=== PATIENT | male | born 1965 | race African-American/Black ===

== ENCOUNTER 2022-08-06 20:13 | Inpatient (IN) | payer MEDICAID ==
[~2022-08-06] VITALS: Ht 182.9 cm; Wt 119.3 kg
[~2022-08-06 20:13] MED LIST: ASPI-867 PO; CLOP-31 PO; LIP40 PO; LISI-652 PO; METO50TA95 PO
[2022-08-06] MEDS ORDERED: ONDANSETRON HCL 4MG/2ML INJ IV STA (20:52)
[2022-08-06] MEDS ORDERED: MORPHINE SULFATE 4 MG/ML CPJ (NOT FOR IM USE) IV STA (20:52)
[2022-08-06] MEDS ORDERED: SODIUM CHLORIDE 0.9% 1,000 ML IV ONE (21:00)
[2022-08-06] MEDS ORDERED: CLONIDINE 0.2MG TABLET PO ONE (21:00)
[2022-08-06 21:12] LABS: CHLORIDE 108 mEq/L (98-107)
[2022-08-06 21:25] LABS: BASOPHILS % 1.3 % (0.0-2.0); EOSINOPHILS % 8.4 % (0.0-5.0); HEMATOCRIT. 50.1 % (42.0-52.0); HEMOGLOBIN. 16.6 g/dL (14.0-18.0); LYMPHOCYTES % 33.6 % (20.0-50.0); MEAN CORPUSCULAR VOLUME 81.7 fL (80.0-94.0); MEAN PLATELET VOLUME 8.1 fl (7.4-10.4); MONOCYTES % 10.9 % (2.0-8.0); NEUTROPHILS % 45.8 % (40.0-76.0); PLATELET 214 x1000/uL (130-400); RED BLOOD CELL COUNT 6.13 mill/uL (4.7-6.1); RED CELL DISTRIBUTION WIDTH 16.1 % (11.6-14.6)
[2022-08-07] MEDS: HYDRALAZINE 20MG/ML VIAL IV PRN ×2 (04:04→16:31)
[2022-08-07] MEDS: HYDROCODONE/ACETAMINOPHEN 10/325MG TABLET PO PRN ×3 (04:04→16:29)
[2022-08-07 05:00] VITALS: BP 186/106
[2022-08-07] MEDS ORDERED: ASPI-1406 PO (05:32)
[2022-08-07 06:36] LABS: CHLORIDE 109 mEq/L (98-107)
[2022-08-07 06:40] LABS: BASOPHILS % 0.9 % (0.0-2.0); EOSINOPHILS % 3.5 % (0.0-5.0); HEMATOCRIT. 49.5 % (42.0-52.0); HEMOGLOBIN. 16.4 g/dL (14.0-18.0); LYMPHOCYTES % 19.8 % (20.0-50.0); MEAN CORPUSCULAR VOLUME 81.5 fL (80.0-94.0); MONOCYTES % 8.2 % (2.0-8.0); NEUTROPHILS % 67.6 % (40.0-76.0); PLATELET 196 x1000/uL (130-400); RED BLOOD CELL COUNT 6.07 mill/uL (4.7-6.1); RED CELL DISTRIBUTION WIDTH 15.9 % (11.6-14.6)
[2022-08-07] MEDS ORDERED: *PATIENT'S OWN MEDICATION STORAGE XX SCH (06:45)
[2022-08-07] MEDS ORDERED: NALOXONE HCL 0.4MG/ML VIAL IV PRN (07:30)
[2022-08-07 08:00] VITALS: BP 151/90
[2022-08-07] MEDS ORDERED: ENOXAPARIN 30MG/0.3ML SYR SUBCUT SCH (09:00)
[2022-08-07] MEDS ORDERED: ENOXAPARIN 40MG/0.4ML SYR SUBCUT SCH (09:00)
[2022-08-07] MEDS ORDERED: METOPROLOL TARTRATE 50MG TABLET PO SCH (09:00)
[2022-08-07] MEDS: ASPIRIN 81MG EC TABLET PO SCH (09:11)
[2022-08-07] MEDS: LISINOPRIL 20MG TABLET PO SCH (09:11)
[2022-08-07 12:00] VITALS: BP 141/91
[2022-08-07 16:00] VITALS: BP 186/112
[2022-08-07] MEDS ORDERED: ENOXAPARIN 100MG/ML SYR SUBCUT SCH (18:00)
[2022-08-07] MEDS: KETOROLAC 15MG/ML VIAL IV PRN (18:10)
[2022-08-07] MEDS: CARVEDILOL 6.25 MG TABLET PO SCH (18:10)
[2022-08-07] MEDS ORDERED: AMLODIPINE 10MG TABLET PO NR (19:45)
[2022-08-07] MEDS ORDERED: ZOLPIDEM TARTRATE 5MG TABLET PO PRN (19:45)
[2022-08-07] MEDS ORDERED: ONDANSETRON HCL 4MG/2ML INJ IV PRN (20:00)
[2022-08-07] MEDS: ATORVASTATIN CALCIUM 40MG TABLET PO SCH (20:04)
[2022-08-07 20:10] VITALS: BP 161/96
[2022-08-07] MEDS ORDERED: CARVEDILOL 6.25 MG TABLET PO SCH (21:00)
[2022-08-08 00:10] VITALS: BP 120/81
[2022-08-08 04:25] VITALS: BP 125/72
[2022-08-08 06:17] LABS: PROTHROMBIN TIME 10.9 sec (9.6-11.0)
[2022-08-08] MEDS: ENOXAPARIN 120MG/0.8ML SYR SUBCUT SCH ×2 (06:26→18:00)
[2022-08-08] MEDS: CARVEDILOL 6.25 MG TABLET PO SCH ×2 (06:34→18:37)
[2022-08-08 08:00] VITALS: BP 148/82
[2022-08-08] MEDS ORDERED: LORAZEPAM 1MG TABLET PO PRN (08:45)
[2022-08-08] MEDS: ASPIRIN 81MG EC TABLET PO SCH (09:02)
[2022-08-08] MEDS: AMLODIPINE 10MG TABLET PO SCH (09:03)
[2022-08-08] MEDS: LISINOPRIL 20MG TABLET PO SCH (09:03)
[2022-08-08 12:00] VITALS: BP 147/90
[2022-08-08] MEDS ORDERED: COR6 PO (15:54)
[2022-08-08] MEDS ORDERED: AMLO10TA80 PO (15:54)
[2022-08-08 16:00] VITALS: BP 143/91
[2022-08-08 20:00] VITALS: BP 146/90
[2022-08-08] MEDS ORDERED: ZOLPIDEM TARTRATE 5MG TABLET PO PRN (21:00)
[2022-08-08] MEDS: ATORVASTATIN CALCIUM 40MG TABLET PO SCH (21:13)
[2022-08-09] VITALS (7 sets, daily range): BP systolic 101–166; BP diastolic 66–101
[2022-08-09] MEDS: HYDRALAZINE 20MG/ML VIAL IV PRN (00:34)
[2022-08-09] MEDS ORDERED: CLONIDINE 0.1MG TABLET PO PRN (04:45)
[2022-08-09] MEDS: KETOROLAC 15MG/ML VIAL IV PRN (04:54)
[2022-08-09] MEDS: ENOXAPARIN 120MG/0.8ML SYR SUBCUT SCH (05:00)
[2022-08-09] MEDS: CARVEDILOL 6.25 MG TABLET PO SCH (05:40)
[2022-08-09] MEDS: LISINOPRIL 20MG TABLET PO SCH (09:00)
[2022-08-09] MEDS: AMLODIPINE 10MG TABLET PO SCH (09:19)
[2022-08-09] MEDS ORDERED: LIDOCAINE HCL/PF 1% 10 MG/ML 5ML VIAL ONE (09:19)
[2022-08-09] MEDS ORDERED: IODIXANOL 320MG/ML 100 ML BOTTLE IV ONE (09:19)
[2022-08-09] MEDS ORDERED: HEPARIN 1000 UNITS/ML 10ML ONE (09:19)
[2022-08-09] MEDS: ASPIRIN 81MG EC TABLET PO SCH (09:19)
[2022-08-09] MEDS ORDERED: FENTANYL CITRATE/PF 50MCG/ML 2ML VIAL ONE (09:50)
[2022-08-09] MEDS ORDERED: MIDAZOLAM HCL 2 MG/2 ML VIAL ONE (09:51)
[2022-08-09] MEDS ORDERED: ATROPINE SULFATE 1MG/10ML SYR IV PRN (11:30)
[2022-08-09] MEDS ORDERED: ACETAMINOPHEN 325MG TABLET PO PRN (11:30)
== END 2022-08-09 17:10 | disposition home or self-care (01) | DRG 190 ==
LOC: ER 20:13 → 7WST 08-07 00:16 → EDBEDREQTM 08-07 00:22 → EDBEDREQSVC 08-07 00:22
PROVIDERS: ADMIT Internal Medicine; ATTEND Internal Medicine
PROC: 4A023N7 Measurement of Cardiac Sampling and Pressure, Left Heart, Percutaneous Approach (ICD-10-PCS; principal; 2022-08-09)
PROC: B2111ZZ Fluoroscopy of Multiple Coronary Arteries using Low Osmolar Contrast (ICD-10-PCS; 2022-08-09)
DX: I21.4 Non-ST elevation (NSTEMI) myocardial infarction (principal); N17.0 Acute kidney failure with tubular necrosis; I16.1 Hypertensive emergency; I25.10 Atherosclerotic heart disease of native coronary artery without angina pectoris; E66.9 Obesity, unspecified; E78.00 Pure hypercholesterolemia, unspecified; E78.5 Hyperlipidemia, unspecified; Z95.1 Presence of aortocoronary bypass graft; I25.2 Old myocardial infarction; Z79.82 Long term (current) use of aspirin; Z95.5 Presence of coronary angioplasty implant and graft; Z68.35 Body mass index [BMI] 35.0-35.9, adult
CPT/HCPCS: 36415; 71045; 71275; 74174; 80048; 80053; 83880; 84484; 85025; 93005; 93306; 93458; 99285; C1769; C1887; C1893; J0360; J1644; J1650; J1885; J2250; J2270; J2405; J3010; J3490; J7030; Q9967

== ENCOUNTER 2024-01-16 06:14 | Emergency (ER) | payer BC, OTHER ==
[~2024-01-16] VITALS: Ht 182.9 cm; Wt 131.0 kg
[~2024-01-16 06:14] MED LIST changes: +AMLO10TA80 PO; +ASPI-1406 PO; -ASPI-867 PO; -CLOP-31 PO; +COR6 PO; -METO50TA95 PO
[2024-01-16 06:23] VITALS: O2SAT 100
[2024-01-16 07:45] LABS: BASOPHILS % 2.4 % (0.0-2.0); EOSINOPHILS % 5.8 % (0.0-5.0); HEMATOCRIT. 48.3 % (42.0-52.0); HEMOGLOBIN. 15.7 g/dL (14.0-18.0); LYMPHOCYTES % 20.2 % (20.0-50.0); MEAN CORPUSCULAR HEMOGLOBIN 27.9 pg (28.0-32.0); MEAN CORPUSCULAR HGB CONC 32.5 g/dL (31.0-37.0); MEAN CORPUSCULAR VOLUME 85.7 fL (80.0-94.0); MEAN PLATELET VOLUME 7.6 fl (7.4-10.4); MONOCYTES % 5.1 % (2.0-8.0); NEUTROPHILS % 66.5 % (40.0-76.0); PLATELET 192 x1000/uL (130-400); RED BLOOD CELL COUNT 5.63 mill/uL (4.7-6.1); RED CELL DISTRIBUTION WIDTH 16.3 % (11.6-14.6); WHITE BLOOD COUNT 4.2 x1000/uL (4.5-11.0)
[2024-01-16 07:53] VITALS: TEMP 36.89184; O2SAT 100
[2024-01-16 07:53] LABS: CHLORIDE 109 mEq/L (98-107); POTASSIUM 4.1 mEq/L (3.5-5.1); SODIUM 137 mEq/L (136-145)
[2024-01-16 07:54] LABS: CALCIUM 9.2 mg/dL (8.7-10.4); CARBON DIOXIDE 25 mEq/L (21-32)
[2024-01-16 07:59] LABS: CREATININE 1.4 mg/dL (0.6-1.3); GLUCOSE 115 mg/dL (70-105); UREA NITROGEN BLOOD 15 mg/dL (9-23)
[2024-01-16 08:00] LABS: TROPONIN I HIGH SENSITIVITY 35 ng/L (3.0-53)
[2024-01-16 08:06] VITALS: BP 140/94; PULSE 60; RESP 17; TEMP 98.4
[2024-01-16] MEDS ORDERED: AMLODIPINE 5MG TABLET PO NR (09:15)
[2024-01-16] MEDS ORDERED: ZOLPIDEM TARTRATE 5MG TABLET PO PRN (09:15)
[2024-01-16] MEDS ORDERED: DOCUSATE SODIUM 100MG CAPSULE PO PRN (09:15)
[2024-01-16] MEDS ORDERED: ONDANSETRON HCL 4MG/2ML INJ IV PRN (09:15)
[2024-01-16] MEDS ORDERED: MAGNESIUM/ALUMINUM HYDROXIDE/SIMETHICONE 30ML UDC PO PRN (09:15)
[2024-01-16] MEDS ORDERED: NITROGLYCERIN 0.4MG TABLET SL SL PRN (09:15)
[2024-01-16] MEDS ORDERED: KETOROLAC 15MG/ML VIAL IV PRN (09:15)
[2024-01-16] MEDS ORDERED: GUAIFENESIN 200MG/10ML SUGAR FREE UDC PO PRN (09:15)
[2024-01-16] MEDS ORDERED: CLONIDINE 0.1MG TABLET PO PRN (09:15)
[2024-01-16] MEDS ORDERED: ACETAMINOPHEN 325MG TABLET PO PRN ×2 (09:15)
[2024-01-16] MEDS ORDERED: IPRATROPIUM/ALBUTEROL 0.5-3(2.5)MG/3ML NEB NEB PRN (09:15)
[2024-01-16] MEDS ORDERED: ENOXAPARIN 30MG/0.3ML SYR SUBCUT SCH (10:00)
[2024-01-16 10:14] LABS: T4 FREE 1.22 ng/dL (0.89-1.76); THYROID STIMULATING HORMONE 0.43 uIU/mL (0.55-4.78)
[2024-01-16] MEDS ORDERED: CARVEDILOL 3.125 MG TABLET PO SCH (18:00)
[2024-01-16] MEDS ORDERED: METOPROLOL TARTRATE 25MG TABLET PO SCH (21:00)
[2024-01-16] MEDS ORDERED: FAMOTIDINE 20MG TABLET PO SCH (21:00)
[2024-01-17] MEDS ORDERED: AMLODIPINE 10MG TABLET PO SCH (09:00)
[2024-01-17] MEDS ORDERED: ASPIRIN 325MG EC TABLET PO SCH (09:00)
== END 2024-01-16 10:30 | disposition left against medical advice (07) ==
LOC: ER 06:14 → EDBEDREQ 08:17 → ER 10:30
DX: R07.9 Chest pain, unspecified (principal); E78.00 Pure hypercholesterolemia, unspecified; I11.9 Hypertensive heart disease without heart failure; I25.2 Old myocardial infarction; F12.90 Cannabis use, unspecified, uncomplicated; Z98.890 Other specified postprocedural states
CPT/HCPCS: 36415; 71045; 80048; 80061; 83036; 83880; 84439; 84443; 84484; 85025; 93005; 99285